=== PATIENT | male | born 1950 | race Caucasian/White ===

== ENCOUNTER 2020-07-03 10:49 | Inpatient (IN) ==
[~2020-07-03 10:49] MED LIST: ASPIRIN 325 MG TABLET PO ONE; DIAZEPAM 5 MG TABLET PO ONE; MAGNESIUM SULF RIDER 2 GM in PREMIX 1 EACH IV PRN; POTASSIUM CHLORIDE RIDER 10 MEQ in PREMIX 1 EACH IV PRN; diphenhydrAMINE CAP 50 MG CAPSULE PO ONE
[2020-07-03] MEDS ORDERED: diphenhydrAMINE CAP 50 MG CAPSULE ONE (11:38)
[2020-07-03] MEDS ORDERED: DIAZEPAM 5 MG TABLET ONE (11:38)
[2020-07-03] MEDS ORDERED: ASPIRIN 325 MG TABLET ONE (11:38)
[2020-07-03] MEDS: DEXTROSE 5% NACL 0.45% 1,000 ML IV SCH ×2 (11:40→16:05)
[2020-07-03] MEDS ORDERED: HEPARIN/NACL 0.9% 2 UNITS/ML 1,000 ML IV ONE ×2 (12:23)
[2020-07-03] MEDS ORDERED: LIDOCAINE 1%/EPI INJ 20 ML VIAL ONE ×2 (12:23)
[2020-07-03] MEDS ORDERED: MIDAZOLAM 2 MG/2 ML VIAL ONE ×2 (13:04→14:40)
[2020-07-03] MEDS ORDERED: fentaNYL 100 MCG/2 ML VIAL ONE (13:04)
[2020-07-03] MEDS ORDERED: ONDANSETRON 4 MG/2 ML VIAL ONE (13:41)
[2020-07-03] MEDS ORDERED: FAMOTIDINE 20 MG/2 ML VIAL IV ONE (13:50)
[2020-07-03] MEDS ORDERED: PROMETHAZINE 25 MG/1 ML VIAL ONE (13:56)
[2020-07-03] MEDS ORDERED: DOBUTamine 500 MG/250 ML PREMIX IV ONE (14:01)
[2020-07-03] MEDS ORDERED: FUROSEMIDE 40 MG/4 ML VIAL ONE (14:02)
[2020-07-03] MEDS ORDERED: NITROGLYCERIN DRIP 50 MG/250 ML BOTTLE IV ONE (14:03)
[2020-07-03] MEDS ORDERED: METHOCARBAMOL 500 MG TABLET PO PRN (14:19)
[2020-07-03] MEDS ORDERED: fentaNYL 100 MCG/2 ML VIAL IV PRN (14:19)
[2020-07-03] MEDS ORDERED: NITROPRUSSIDE 100 MG in DEXTROSE 5% 250 ML IV PRN (14:19)
[2020-07-03] MEDS ORDERED: NITROGLYCERIN SL 0.4 MG TABLET SL PRN (14:19)
[2020-07-03] MEDS: DOBUTamine 500 MG/250 ML PREMIX IV PRN (14:20)
[2020-07-03] MEDS ORDERED: ETOMIDATE 20 MG/10 ML VIAL IV ONE ×2 (14:25→14:34)
[2020-07-03] MEDS ORDERED: SUCCINYLCHOLINE 200 MG/10 ML VIAL ONE (14:26)
[2020-07-03] MEDS ORDERED: SUCCINYLCHOLINE 200 MG/10 ML VIAL IV ONE (14:35)
[2020-07-03] MEDS ORDERED: ZALEPLON 5 MG CAPSULE PO PRN (14:36)
[2020-07-03] MEDS ORDERED: hydrALAZINE 20 MG/1 ML VIAL IV PRN (14:36)
[2020-07-03] MEDS ORDERED: MAGNESIUM SULF RIDER 4 GM in PREMIX 1 EACH IV PRN (14:36)
[2020-07-03] MEDS ORDERED: MAGNESIUM SULF RIDER 2 GM in PREMIX 1 EACH IV PRN (14:36)
[2020-07-03] MEDS ORDERED: ONDANSETRON 4 MG/2 ML VIAL IV PRN (14:36)
[2020-07-03] MEDS ORDERED: MIDAZOLAM 100 MG in SODIUM CHLORIDE 0.9% 80 ML IV PRN (14:37)
[2020-07-03] MEDS ORDERED: MIDAZOLAM 2 MG/2 ML VIAL IV ONE (14:43)
[2020-07-03] MEDS: MIDAZOLAM 100 MG in SODIUM CHLORIDE 0.9% 80 ML IV PRN (14:50)
[2020-07-03] MEDS ORDERED: NOREPINEPHRINE 4 MG/4 ML VIAL IV ONE ×2 (15:06→18:01)
[2020-07-03] MEDS: NOREPINEPHRINE 8 MG in SODIUM CHLORIDE 0.9% 242 ML IV PRN ×3 (15:10→22:50)
[2020-07-03] MEDS ORDERED: SODIUM CHLORIDE 0.9% 250 ML IV ONE (15:15)
[2020-07-03] MEDS ORDERED: fentaNYL 100 MCG/2 ML VIAL IV ONE ×2 (15:18→15:22)
[2020-07-03] MEDS ORDERED: GLUCAGON 1 MG VIAL IM PRN (15:23)
[2020-07-03] MEDS ORDERED: DEXTROSE 50% 25 GM/50 ML VIAL IV PRN (15:23)
[2020-07-03] MEDS: fentaNYL INJ 1,250 MCG in SODIUM CHLORIDE 0.9% 225 ML IV PRN (15:40)
[2020-07-03 16:26] LABS: Basophils # 0.1 10*3/uL (0.0-0.2); Basophils % 0.4 % (0.0-0.8); Eosinophils # 0.1 10*3/uL (0.0-0.87); Eosinophils % 0.4 % (0.00-10.9); Hematocrit 24.9 VOL% (42.0-52.0); Immature Granulocytes % 0.6 %; Immature Granulocytes Absolute 0.11 #; Lymphocytes # 1.4 10*3/uL (1.4-4.0); Lymphocytes % 7.6 % (21.2-54.2); Mean Corpuscular HGB Conc 32.1 GM/DL (32-36); Mean Corpuscular Volume 97.3 FL (87-102); Mean Platelet Volume 9.7 FL (9.6-12.0); Monocytes % 4.9 % (1.7-12.7); Neutrophils % 86.1 % (38.7-73.9); Platelet Count 376 T/CUMM (130-400); Red Blood Count 2.56 MC/CUMM (3.8-5.5); Red Cell Distribution Width 13.4 % (9.3-17.3); White Blood Count 18.3 T/CUMM (4-12)
[2020-07-03] MEDS ORDERED: INSULIN NPH 100 UNIT/ML SUBCUT SCH (16:30)
[2020-07-03 16:55] LABS: Potassium 4.1 MMOL/L (3.5-5.1)
[2020-07-03] MEDS ORDERED: SODIUM CHLORIDE 0.9% 1,000 ML IV PRN (17:09)
[2020-07-03 17:31] LABS: ABG Base Excess -7.7 MMOL/L (-2.5-2.5); ABG HCO3 18.1 MMOL/L (20-26); ABG Oxygen Saturation 98.5 % (95-100); ABG PCO2 40.5 MM HG (35-48); ABG PH 7.271 (7.35-7.45); ABG TCO2 17.7 MMOL/L (23-27)
[2020-07-03] MEDS ORDERED: INSULIN LISPRO 100 UNIT/ML SUBCUT SCH (18:00)
[2020-07-03] MEDS: LACTATED RINGERS 1,000 ML IV SCH (18:11)
[2020-07-03] MEDS: ENOXAPARIN 40 MG/0.4 ML SYRINGE SUBCUT SCH (18:26)
[2020-07-03] MEDS: INSULIN NPH 100 UNIT/ML SUBCUT SCH (18:26)
[2020-07-03] MEDS: INSULIN GLARGINE 100 UNIT/ML SUBCUT SCH (20:34)
[2020-07-03] MEDS ORDERED: INSULIN GLARGINE 100 UNIT/ML SUBCUT SCH (21:00)
[2020-07-03] MEDS ORDERED: LOSARTAN 50 MG TABLET NG SCH (21:00)
[2020-07-04] MEDS: INSULIN LISPRO 100 UNIT/ML SUBCUT SCH ×6 (00:02→20:23)
[2020-07-04] MEDS: INSULIN NPH 100 UNIT/ML SUBCUT SCH ×4 (00:02→18:20)
[2020-07-04] MEDS: fentaNYL INJ 1,250 MCG in SODIUM CHLORIDE 0.9% 225 ML IV PRN ×3 (01:22→18:10)
[2020-07-04] MEDS: DOBUTamine 500 MG/250 ML PREMIX IV PRN ×3 (01:24→18:38)
[2020-07-04 04:20] LABS: ABG Base Excess -2.4 MMOL/L (-2.5-2.5); ABG Oxygen Saturation 99.1 % (95-100); ABG PCO2 26.7 MM HG (35-48); ABG PH 7.492 (7.35-7.45); ABG PO2 306.6 MM HG (80-95); ABG TCO2 20.8 MMOL/L (23-27)
[2020-07-04 04:22] LABS: Basophils # 0.1 10*3/uL (0.0-0.2); Basophils % 0.4 % (0.0-0.8); Eosinophils % 0.1 % (0.00-10.9); Hematocrit 27.7 VOL% (42.0-52.0); Hemoglobin 9.4 GM/DL (14.0-18.0); Immature Granulocytes % 0.5 %; Immature Granulocytes Absolute 0.06 #; Lymphocytes # 1.1 10*3/uL (1.4-4.0); Lymphocytes % 8.4 % (21.2-54.2); Mean Corpuscular HGB Conc 33.9 GM/DL (32-36); Mean Corpuscular Volume 92.3 FL (87-102); Mean Platelet Volume 9.8 FL (9.6-12.0); Monocytes % 9.2 % (1.7-12.7); Neutrophils % 81.4 % (38.7-73.9); Platelet Count 265 T/CUMM (130-400); Red Cell Distribution Width 13.5 % (9.3-17.3)
[2020-07-04 04:57] LABS: Calcium 7.8 MG/DL (8.5-10.1); Potassium 4.3 MMOL/L (3.5-5.1)
[2020-07-04 05:01] LABS: CKMB % 14.3 %
[2020-07-04] MEDS: ENOXAPARIN 40 MG/0.4 ML SYRINGE SUBCUT SCH ×2 (05:14→18:23)
[2020-07-04] MEDS: PANTOPRAZOLE 40 MG VIAL IV SCH (08:31)
[2020-07-04] MEDS: ATORVASTATIN 80 MG TABLET PO SCH (08:35)
[2020-07-04] MEDS: ASPIRIN CHEW 81 MG TABLET PO SCH (08:35)
[2020-07-04] MEDS: OMEGA 3 ACID ETHYL ESTERS 1 GM CAPSULE PO SCH (08:35)
[2020-07-04] MEDS ORDERED: METOPROLOL TARTRATE 25 MG TABLET PO SCH (09:00)
[2020-07-04] MEDS ORDERED: hydroCHLOROthiazide 12.5 MG CAPSULE NG SCH (09:00)
[2020-07-04] MEDS ORDERED: NON-FORMULARY MEDICATION (Aspirin 81 mg Tablet) PO SCH (09:00)
[2020-07-04] MEDS ORDERED: amLODIPine 10 MG TABLET PO SCH (09:00)
[2020-07-04] MEDS ORDERED: PANTOPRAZOLE 40 MG TABLET PO SCH (09:00)
[2020-07-04 09:47] LABS: Albumin 2.9 G/DL (3.4-5.0); Bilirubin,Direct 0.13 MG/DL (0.0-0.20); Bilirubin,Indirect 0.4 MG/DL (0.0-1.0); Bilirubin,Total 0.5 MG/DL (0.2-1.0); Total Protein 6.1 G/DL (6.4-8.2)
[2020-07-04 10:32] LABS: CKMB % 13.2 %
[2020-07-04] MEDS ORDERED: HEPARIN/NACL 0.9% 2 UNITS/ML 1,000 ML IV ONE (10:41)
[2020-07-04] MEDS: MIDAZOLAM 100 MG in SODIUM CHLORIDE 0.9% 80 ML IV PRN ×2 (10:45→21:50)
[2020-07-04] MEDS ORDERED: LIDOCAINE 1%/EPI INJ 20 ML VIAL ONE (10:56)
[2020-07-04] MEDS ORDERED: HEPARIN DRIP 25,000 UNITS/500 ML PREMIX IV ONE (11:06)
[2020-07-04] MEDS ORDERED: HEPARIN 5,000 UNIT/1 ML VIAL ONE (11:06)
[2020-07-04] MEDS: HEPARIN DRIP 25,000 UNITS/500 ML PREMIX IV SCH (11:20)
[2020-07-04] MEDS ORDERED: DEXTROSE 50% 25 GM/50 ML VIAL IV PRN (13:16)
[2020-07-04] MEDS ORDERED: GLUCAGON 1 MG VIAL IM PRN (13:16)
[2020-07-04] MEDS ORDERED: SODIUM CHLORIDE 0.9% 1,000 ML IV SCH (13:30)
[2020-07-04] MEDS: LACTATED RINGERS 1,000 ML IV SCH (14:05)
[2020-07-04] MEDS: CHLORHEXIDINE 4% SOLN 118 ML BOTTLE TOP SCH ×2 (16:07→22:12)
[2020-07-04 19:34] LABS: Hematocrit 32.6 VOL% (42.0-52.0); Hemoglobin 10.8 GM/DL (14.0-18.0)
[2020-07-04 20:12] LABS: CKMB % 10.4 %; Troponin I 65.2 NG/ML (0.00-0.045)
[2020-07-04] MEDS: INSULIN GLARGINE 100 UNIT/ML SUBCUT SCH (20:17)
[2020-07-04] MEDS: CHLORHEXIDINE 0.12% ORAL RINSE 60 ML BOTTLE SWISH/SPIT SCH (22:12)
[2020-07-05] MEDS: INSULIN LISPRO 100 UNIT/ML SUBCUT SCH ×4 (00:16→12:17)
[2020-07-05] MEDS: INSULIN NPH 100 UNIT/ML SUBCUT SCH ×3 (00:16→12:18)
[2020-07-05 02:30] LABS: ABG Base Excess -3.1 MMOL/L (-2.5-2.5); ABG HCO3 21.8 MMOL/L (20-26); ABG Oxygen Saturation 98.1 % (95-100); ABG PCO2 43.7 MM HG (35-48); ABG PH 7.327 (7.35-7.45); ABG TCO2 20.8 MMOL/L (23-27)
[2020-07-05 02:35] LABS: Basophils # 0.1 10*3/uL (0.0-0.2); Basophils % 0.4 % (0.0-0.8); Eosinophils % 0.1 % (0.00-10.9); Hematocrit 31.8 VOL% (42.0-52.0); Hemoglobin 10.3 GM/DL (14.0-18.0); Immature Granulocytes % 0.4 %; Immature Granulocytes Absolute 0.06 #; Lymphocytes # 0.6 10*3/uL (1.4-4.0); Lymphocytes % 4.3 % (21.2-54.2); Mean Corpuscular HGB Conc 32.4 GM/DL (32-36); Mean Corpuscular Volume 93.8 FL (87-102); Mean Platelet Volume 9.9 FL (9.6-12.0); Monocytes % 8.8 % (1.7-12.7); Platelet Count 207 T/CUMM (130-400); Red Blood Count 3.39 MC/CUMM (3.8-5.5); Red Cell Distribution Width 14.6 % (9.3-17.3); White Blood Count 13.4 T/CUMM (4-12)
[2020-07-05 02:47] LABS: Calcium 7.5 MG/DL (8.5-10.1); Osmolality,Calculated 291.7 MOS/KG (273-304); Potassium 4.7 MMOL/L (3.5-5.1)
[2020-07-05 02:56] LABS: Lymphocytes 5 % (20-55); Platelet Estimate Normal; Segmented Neutrophils 91 % (50-85); Total Cells Counted 100
[2020-07-05 02:57] LABS: Hypochromasia Slight
[2020-07-05 03:12] LABS: Troponin I 44.9 NG/ML (0.00-0.045)
[2020-07-05] MEDS: fentaNYL INJ 1,250 MCG in SODIUM CHLORIDE 0.9% 225 ML IV PRN (03:26)
[2020-07-05] MEDS ORDERED: PAPAVERINE 60 MG/2 ML VIAL ONE (04:23)
[2020-07-05] MEDS ORDERED: VANCOMYCIN 1,000 MG VIAL ONE (04:24)
[2020-07-05] MEDS ORDERED: VANCOMYCIN 500 MG VIAL ONE (04:24)
[2020-07-05] MEDS ORDERED: VANCOMYCIN INJ 1,000 MG in SODIUM CHLORIDE 0.9% 250 ML IV ONE (05:00)
[2020-07-05] MEDS: CHLORHEXIDINE 4% SOLN 118 ML BOTTLE TOP SCH ×2 (05:11→08:42)
[2020-07-05 06:01] VITALS: BP 118/47
[2020-07-05] MEDS ORDERED: MIDAZOLAM 10 MG/2 ML VIAL ONE ×4 (06:07→12:27)
[2020-07-05] MEDS ORDERED: SUFentanil 250 MCG/5 ML AMP ONE ×3 (06:07)
[2020-07-05] MEDS: DOBUTamine 500 MG/250 ML PREMIX IV PRN (06:23)
[2020-07-05 07:32] LABS: ABG HCO3 21.9 MMOL/L (20-26); ABG Oxygen Saturation 96.9 % (95-100); ABG PCO2 41.7 MM HG (35-48); ABG PH 7.341 (7.35-7.45); ABG TCO2 20.5 MMOL/L (23-27); Glucose Heart Surgery 191 MG/DL (74-106); Hematocrit Heart Surgery 33.1 PERCENT (42-52); Hemoglobin Heart Surgery 10.7 G/DL (14.0-18.0); Ionized Calcium Arterial 1.16 MMOL/L (1.21-1.46); PCO2 Patient Temp Arterial 41.7 MMHG; PH Patient Temp Arterial 7.341; Patient Temperature 37 CELCIUS; Potassium Heart/CVR 4.4 MMOL/L (3.5-5.1); Sodium Heart/CVR 138 MMOL/L (135-145)
[2020-07-05] MEDS: ATORVASTATIN 80 MG TABLET PO SCH (08:42)
[2020-07-05] MEDS: PANTOPRAZOLE 40 MG VIAL IV SCH (08:42)
[2020-07-05] MEDS: OMEGA 3 ACID ETHYL ESTERS 1 GM CAPSULE PO SCH (08:42)
[2020-07-05] MEDS: CHLORHEXIDINE 0.12% ORAL RINSE 60 ML BOTTLE SWISH/SPIT SCH (08:42)
[2020-07-05] MEDS ORDERED: ALBUMIN 5% 12.5 GM/250 ML VIAL IV ONE (09:45)
[2020-07-05] MEDS ORDERED: CALCIUM CHLORIDE 1,000 MG/10 ML SYRINGE IV ONE (09:45)
[2020-07-05] MEDS ORDERED: PHENYLEPHRINE DRIP 40 MG/250 ML PREMIX IV ONE (09:46)
[2020-07-05] MEDS ORDERED: EPINEPHrine 1 MG/10 ML SYRINGE ONE ×3 (09:46→13:57)
[2020-07-05] MEDS ORDERED: SODIUM BICARBONATE 50 MEQ/50 ML SYRINGE IV ONE (09:46)
[2020-07-05] MEDS ORDERED: PHENYLEPHRINE DRIP 20 MG/250 ML PREMIX IV ONE (10:34)
[2020-07-05] MEDS ORDERED: HEPARIN/NACL 0.9% 2 UNITS/ML 500 ML IV ONE ×2 (10:34→10:35)
[2020-07-05] MEDS ORDERED: SODIUM CHLORIDE 0.9% 200 ML IV ONE (10:35)
[2020-07-05] MEDS ORDERED: SODIUM CHLORIDE 0.9% 250 ML IV ONE (10:35)
[2020-07-05] MEDS ORDERED: LACTATED RINGERS 1,000 ML IV ONE (10:35)
[2020-07-05] MEDS ORDERED: SODIUM CHLORIDE 0.9% 1,000 ML IV ONE (10:35)
[2020-07-05 10:41] LABS: Hematocrit Heart Surgery 19.7 PERCENT (42-52); PCO2 Patient Temp Venous 34.6 MM HG; PH Patient Temp Venous 7.438; PO2 Patient Temp Venous 33.8 MM HG; Potassium Heart/CVR 5.1 MMOL/L (3.5-5.1); VBG Base Excess -0.4 MEQ/L (0-4); VBG HCO3 23.8 MEQ/L (24-28); VBG Oxygen Saturation 74.6 %; VBG PCO2 38.1 MMHG (41-51); VBG PH 7.409; VBG PO2 38.9 MMHG (17-40)
[2020-07-05 10:42] LABS: Hemoglobin Heart Surgery 6.3 G/DL (14.0-18.0)
[2020-07-05] MEDS: ASPIRIN CHEW 81 MG TABLET PO SCH (10:48)
[2020-07-05] MEDS: LACTATED RINGERS 1,000 ML IV SCH (10:49)
[2020-07-05] MEDS: HEPARIN DRIP 25,000 UNITS/500 ML PREMIX IV SCH (10:49)
[2020-07-05 11:11] LABS: Hematocrit Heart Surgery 20.5 PERCENT (42-52); Hemoglobin Heart Surgery 6.6 G/DL (14.0-18.0); PCO2 Patient Temp Venous 39.2 MM HG; PH Patient Temp Venous 7.391; PO2 Patient Temp Venous 43.6 MM HG; Potassium Heart/CVR 4.5 MMOL/L (3.5-5.1); VBG HCO3 23.4 MEQ/L (24-28); VBG Oxygen Saturation 79.4 %; VBG PCO2 39.2 MMHG (41-51); VBG PH 7.391; VBG PO2 43.6 MMHG (17-40); VBG Total CO2 22.7 MMOL/L
[2020-07-05 11:44] LABS: Hematocrit Heart Surgery 20.6 PERCENT (42-52); Hemoglobin Heart Surgery 6.6 G/DL (14.0-18.0); PCO2 Patient Temp Venous 35.2 MM HG; PH Patient Temp Venous 7.42; PO2 Patient Temp Venous 37.4 MM HG; Potassium Heart/CVR 4.6 MMOL/L (3.5-5.1); VBG Base Excess -1.2 MEQ/L (0-4); VBG HCO3 23.3 MEQ/L (24-28); VBG Oxygen Saturation 80.7 %; VBG PCO2 40.7 MMHG (41-51); VBG PH 7.377; VBG PO2 45.9 MMHG (17-40); VBG Total CO2 22.8 MMOL/L
[2020-07-05 12:11] LABS: Hematocrit Heart Surgery 18.1 PERCENT (42-52); PCO2 Patient Temp Venous 35.4 MM HG; PH Patient Temp Venous 7.442; PO2 Patient Temp Venous 34.3 MM HG; VBG Base Excess 0.5 MEQ/L (0-4); VBG HCO3 24.7 MEQ/L (24-28); VBG Oxygen Saturation 78.1 %; VBG PH 7.398; VBG PO2 42.1 MMHG (17-40); VBG Total CO2 24.3 MMOL/L
[2020-07-05] MEDS ORDERED: CALCIUM CHLORIDE 1,000 MG/10 ML VIAL IV ONE ×2 (12:13→14:51)
[2020-07-05] MEDS ORDERED: AMINOCAPROIC ACID 5,000 MG/20 ML VIAL ONE (12:18)
[2020-07-05 12:20] LABS: Hemoglobin Heart Surgery 5.7 G/DL (14.0-18.0)
[2020-07-05] MEDS ORDERED: SODIUM CHLORIDE 0.9% 100 ML IV ONE ×2 (12:30→13:15)
[2020-07-05 12:55] LABS: Hematocrit Heart Surgery 25.8 PERCENT (42-52); Hemoglobin Heart Surgery 8.3 G/DL (14.0-18.0); PCO2 Patient Temp Venous 42.4 MM HG; PH Patient Temp Venous 7.368; PO2 Patient Temp Venous 34.8 MM HG; Potassium Heart/CVR 5.3 MMOL/L (3.5-5.1); VBG Base Excess -0.8 MEQ/L (0-4); VBG HCO3 23.3 MEQ/L (24-28); VBG Oxygen Saturation 66.2 %; VBG PCO2 42.4 MMHG (41-51); VBG PH 7.368; VBG PO2 34.8 MMHG (17-40); VBG Total CO2 22.9 MMOL/L
[2020-07-05] MEDS ORDERED: MANNITOL 100 GM/500 ML BAG IV ONE (13:07)
[2020-07-05] MEDS ORDERED: DEXTROSE 5% KCL 20 MEQ 40 MEQ/2,000 ML BAG IV ONE (13:07)
[2020-07-05] MEDS ORDERED: ALBUMIN 25% 25 GM/100 ML VIAL IV ONE (13:07)
[2020-07-05] MEDS ORDERED: MAGNESIUM SULFATE 5 GM/10 ML VIAL IV ONE (13:07)
[2020-07-05] MEDS ORDERED: LIDOCAINE 2% 5 ML VIAL ONE (13:07)
[2020-07-05] MEDS ORDERED: methylPREDNISolone SOD SUC 1,000 MG/8 ML VIAL ONE (13:07)
[2020-07-05] MEDS ORDERED: PROTAMINE SULFATE 50 MG/5 ML VIAL IV ONE (13:08)
[2020-07-05] MEDS ORDERED: HEPARIN 10,000 UNIT/10 ML VIAL ONE (13:08)
[2020-07-05] MEDS ORDERED: FUROSEMIDE 20 MG/2 ML VIAL ONE (13:08)
[2020-07-05] MEDS ORDERED: SODIUM BICARBONATE 50 MEQ/50 ML VIAL IV ONE (13:08)
[2020-07-05] MEDS ORDERED: PROTAMINE SULFATE 250 MG/25 ML VIAL IV ONE (13:08)
[2020-07-05] MEDS ORDERED: EPINEPHrine 1 MG/ML VIAL ONE ×2 (13:14→14:00)
[2020-07-05] MEDS ORDERED: diphenhydrAMINE 50 MG/1 ML VIAL ONE (13:18)
[2020-07-05] MEDS ORDERED: FAMOTIDINE 20 MG/2 ML VIAL IV ONE (13:19)
[2020-07-05 13:30] LABS: ABG Base Excess -7.9 MMOL/L (-2.5-2.5); ABG PCO2 34.3 MM HG (35-48); ABG PH 7.317 (7.35-7.45); ABG TCO2 16.8 MMOL/L (23-27); Glucose Heart Surgery 448 MG/DL (74-106); Hematocrit Heart Surgery 21.2 PERCENT (42-52); Hemoglobin Heart Surgery 6.8 G/DL (14.0-18.0); PCO2 Patient Temp Arterial 34.3 MMHG; PH Patient Temp Arterial 7.317; Patient Temperature 37 CELCIUS; Potassium Heart/CVR 4.2 MMOL/L (3.5-5.1); Sodium Heart/CVR 135 MMOL/L (135-145)
[2020-07-05] MEDS ORDERED: VECURONIUM 10 MG VIAL IV ONE (14:51)
== END 2020-07-05 14:16 | disposition expired | DRG 216 ==
LOC: N.CL 10:49 → N.CC 14:07 → N.CVR 07-05 14:08
PROVIDERS: ADMIT Internal Medicine Interventional Cardiology; ATTEND Internal Medicine Interventional Cardiology
PROC: CABGAVR (ICD-10-PCS; 2020-07-05 06:50)